=== PATIENT | female | born 1985 | race Caucasian/White ===

== ENCOUNTER → 2019-06-28 | Day surgery (SDC) | payer OTHER ==
[~2019-06-28] MED LIST: ADVIL100 MG PO; ASPIR 8181 MG PO; CATAFLAN PO; FLEXERIL PO; PEPCID40 MG PO; ZOFRAN4 MG PO
== END | disposition home or self-care (01) ==
LOC: ADM 06-11 12:45 → CIR.AMB 07:00
PROVIDERS: Plastic Surgery
PROC: 0HBV0ZZ Excision of Bilateral Breast, Open Approach (ICD-10-PCS; principal; 2019-06-28 07:00)
DX: N62 Hypertrophy of breast (principal)